=== PATIENT | female | born 1990 | race Caucasian/White ===

== ENCOUNTER 2024-05-31 14:25 | Outpatient (AMB) | payer OTHER, SELFPAY ==
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
[2024-06-01 09:28] VITALS: BP 110/76; PULSE 103; O2SAT 96
== END 2024-05-31 16:12 | disposition home or self-care (01) ==
PROVIDERS: Visit Provider Nurse Practitioner Psychiatric/Mental Health
DX: F11.21 Opioid dependence, in remission (principal); F13.20 Sedative, hypnotic or anxiolytic dependence, uncomplicated
CPT/HCPCS: 99204

== ENCOUNTER → 2024-05-31 14:25 | Outpatient (BNVA) | payer OTHER, SELFPAY | PROVIDERS: Visit Provider Nurse Practitioner Psychiatric/Mental Health | DX: F11.21 Opioid dependence, in remission (principal); F13.20 Sedative, hypnotic or anxiolytic dependence, uncomplicated; Z51.81 Encounter for therapeutic drug level monitoring; Z32.02 Encounter for pregnancy test, result negative | CPT/HCPCS: 80307; 81025; 99202 ==